=== PATIENT | male | born 1990 | race Two or more races ===

== ENCOUNTER 2024-01-05 16:49 | Emergency (ER) | payer MEDICAID ==
[~2024-01-05] VITALS: Ht 170.2 cm; Wt 74.8 kg
[2024-01-05 17:55] LABS: BASOPHILS # (AUTO) 0.1 K/uL (0.0-0.2); BASOPHILS % (AUTO) 0.6 % (0.0-2.0); HEMATOCRIT 49 % (39-51); HEMOGLOBIN 16.5 g/dL (13.5-17.5); LYMPHOCYTES # (AUTO) 3.5 K/uL (0.8-4.8); LYMPHOCYTES % (AUTO) 28.5 % (20.0-44.0); MEAN CORPUSCULAR HEMOGLOBIN 30 PG (26.0-33.0); MEAN CORPUSCULAR HGB CONC 34 g/dl (31.0-36.0); MEAN CORPUSCULAR VOLUME 87 fL (80-96); MONOCYTES # (AUTO) 0.7 K/uL (0.1-1.30); MONOCYTES % (AUTO) 5.7 % (2.0-12.0); NEUTROPHILS # (AUTO) 8.1 K/uL (1.8-8.9); NEUTROPHILS % (AUTO) 65.2 % (43.0-81.0); PLATELET COUNT (AUTO) 213 K/uL (150-450); RED BLOOD CELL COUNT(AUTO) 5.56 MIL/uL (4.5-6.0); RED CELL DISTRIBUTION WIDTH 13.3 % (11.5-15.0); WHITE BLOOD COUNT (AUTO) 12.4 K/uL (4.3-11.0)
[2024-01-05] MEDS: LORAZEPAM INJ 2 MG/ML VIAL IVP ONE (18:00)
[2024-01-05] MEDS: IV NS 0.9% 1,000 ML BAG IV ONE ×2 (18:00→19:28)
[2024-01-05] MEDS ORDERED: PANTOPRAZOLE 40 MG VIAL ONE (18:04)
[2024-01-05] MEDS ORDERED: LORAZEPAM INJ 2 MG/ML VIAL ONE (18:04)
[2024-01-05] MEDS ORDERED: ONDANSETRON HCL/PF 4 MG/2 ML VIAL ONE (18:04)
[2024-01-05] MEDS: PANTOPRAZOLE 40 MG VIAL IV ONE (18:05)
[2024-01-05 18:09] LABS: ALANINE AMINOTRANSFERASE 36 U/L (12-78); ALCOHOL, BLOOD < 3 mg/dL (0-10); ALKALINE PHOSPHATASE 85 U/L (46-116); ASPARTATE AMINOTRANSFERASE 38 U/L (15-37); BILIRUBIN,DIRECT 0.4 mg/dL (0.0-0.2); BILIRUBIN,TOTAL 1.6 mg/dL (0.2-1.0); CALCIUM, SERUM 9.6 mg/dL (8.5-10.1); CARBON DIOXIDE 21 mmol/L (21-32); CHLORIDE 97 mmol/L (98-107); CREATININE 2.5 mg/dL (0.6-1.3); GLUCOSE 175 mg/dL (74-106); SODIUM SERUM 134 mmol/L (136-145); UREA NITROGEN, BLOOD 10 mg/dL (7-18)
[2024-01-05 18:10] LABS: ACETAMINOPHEN <10 ug/ml (10-30); SALICYLATE < 0.2 mg/dL (2.8-20.0)
[2024-01-05] MEDS: ONDANSETRON HCL/PF 4 MG/2 ML VIAL IVP ONE (18:10)
[2024-01-05 18:15] LABS: TOTAL PROTEIN, SERUM 7.9 g/dL (6.4-8.2)
[2024-01-05] MEDS: Thiamine 100 MG in IV D5W 50 ML IV SCH (19:00)
[2024-01-05] MEDS ORDERED: POTASSIUM CHLORIDE 20 MEQ TAB.PRT.SR PO ONE (19:26)
[2024-01-05] MEDS: POTASSIUM CHLORIDE 20 MEQ TAB.PRT.SR PO ONE (19:28)
[2024-01-05] MEDS ORDERED: CHLO25CA22 PO (21:13)
[2024-01-05] MEDS ORDERED: CHLORDIAZEPOXIDE HCL 25 MG CAPSULE ONE (21:35)
[2024-01-05] MEDS: CHLORDIAZEPOXIDE HCL 25 MG CAPSULE PO ONE (21:36)
[2024-01-05 22:15] VITALS: BP 126/83; TEMP 98.6; O2SAT 96
== END 2024-01-05 22:00 | disposition home or self-care (01) ==
LOC: ER 16:55
DX: F10.139 Alcohol abuse with withdrawal, unspecified (principal); E87.6 Hypokalemia; R73.9 Hyperglycemia, unspecified; R11.2 Nausea with vomiting, unspecified; M54.6 Pain in thoracic spine; Y90.0 Blood alcohol level of less than 20 mg/100 ml
CPT/HCPCS: 99285; 96365; 96361; 96375 ×3; 93005; 71045; 85025; 80048; 80076; 83735; 36415; 82962; 80143; 80320; J2060; J2405; J7060; J7030 ×2; J3411; J2470; G0480